=== PATIENT | male | born 2000 | race Caucasian/White ===

== ENCOUNTER 2020-01-23 21:46 | Emergency (ER) | payer BC ==
[~2020-01-23] VITALS: Ht 167.6 cm; Wt 55.8 kg
[2020-01-23 21:59] VITALS: Ht 167.6 cm; Wt 55.8 kg
[2020-01-23 23:58] VITALS: BP 125/81
== END 2020-01-23 23:58 | disposition home or self-care (01) ==
LOC: ED 21:46
DX: J45.909 Unspecified asthma, uncomplicated (principal); Z20.828 Contact with and (suspected) exposure to other viral communicable diseases
CPT/HCPCS: Q0092; U0003-CS